=== PATIENT | male | born 1940 | race Caucasian/White ===

== ENCOUNTER 2021-02-11 12:19 | Outpatient (CLI) | payer OTHER | END 2021-02-11 12:20 | disposition home or self-care (01) | LOC: BICCT 12:19 | PROVIDERS: ATTEND Internal Medicine | DX: Z12.2 Encounter for screening for malignant neoplasm of respiratory organs (principal); R91.1 Solitary pulmonary nodule; F17.210 Nicotine dependence, cigarettes, uncomplicated; R91.8 Other nonspecific abnormal finding of lung field; J92.9 Pleural plaque without asbestos | CPT/HCPCS: 71271 ==

== ENCOUNTER 2021-08-09 12:20 | Inpatient (IN) | payer MEDICARE, OTHER ==
[~2021-08-09 12:20] MED LIST: Iopamidol-370 76% 500 ML 1 ML ONE
[2021-08-09] MEDS ORDERED: Acetaminophen 500 MG TAB ONE (12:43)
[2021-08-09] MEDS ORDERED: Vancomycin 1 GM/200 ML BAG ONE (13:11)
[2021-08-09] MEDS ORDERED: Piperacillin/Tazobactam 3.375 GM VIAL ONE (13:11)
[2021-08-09 13:14] LABS: #Eosinphils 0.1 thou/uL (0.0-0.7); #Lymphocytes 0.7 thou/uL (1.20-3.40); #Monocytes 0.6 thou/uL (0.11-0.59); #Neutrophils 9.3 thou/uL (1.40-6.50); %Eosinophils 0.7 % (0.0-10.0); %Lymphocytes 6.4 % (21.0-51.0); %Monocytes 5.9 % (0.0-10.0); %Neutrophils 86.9 % (42.0-75.0); Hemoglobin 11.4 g/dL (14.0-18.0); Mean Corpuscular HGB CONC 33.9 g/dL (32.0-36.0); Mean Corpuscular Hemoglobin 32.2 pg (27.0-31.0); Mean Corpuscular Volume 95.2 fL (78.0-98.0); Mean Platelet Volume 9.3 fL (7.4-10.4); Platelet Count 80 thou/uL (130-400); RBC Distribution Width 12.4 % (11.5-14.5); Red Blood Cell (RBC) Count 3.53 mill/uL (4.70-6.10); White Blood Cell (WBC) Count 10.7 thou/uL (4.8-10.8)
[2021-08-09 13:26] LABS: MDiff Complete? YES; Ovalocytes SLIGHT = 2-5 cells (100X) (0-1/hpf); Platelet Morphology Comment Appears Decreased; Polychromasia SLIGHT = 2-3 cells (100X) (0-2/hpf)
[2021-08-09 13:45] LABS: ALT (SGPT) 37 U/L (8-55); AST (SGOT) 37 U/L (5-34); Albumin 2.4 g/dL (3.4-4.8); Alkaline Phosphatase 98 U/L (40-110); Anion Gap 14 mmol/L (10-20); BUN (Urea Nitrogen) 42 mg/dL (8.4-25.7); Calc. Creatinine Clearance 0 mL/min (70-130); Calcium 8.2 mg/dL (7.8-10.44); Carbon Dioxide 21 mmol/L (23-31); Chloride 110 mmol/L (98-107); Globulin 2.4 g/dL (2.4-3.5); Glucose 100 mg/dL (83-110); Potassium 4.5 mmol/L (3.5-5.1); Protein, Total 4.8 g/dL (5.8-8.1); Sodium 140 mmol/L (136-145)
[2021-08-09 13:56] LABS: CKMB 0.9 ng/mL (0-6.6)
[2021-08-09 14:31] LABS: Bacteria/HPF None Seen HPF (None Seen); Bilirubin Negative (Negative); Blood, Urine Trace (Negative); Clarity Clear (Clear); Glucose, Urine (Dipstick) Normal (Negative); Ketone, Urine Negative (Negative); Leukocyte Negative Leu/uL (Negative); Nitrite Negative (Negative); Protein, Urine (Dipstick) 10 mg/dL (Neg-Trace); Squamous Epithelial 0-3 HPF (0-3); Urobilinogen Normal mg/dL (Less than 2); WBC/HPF 0-3 HPF (0-3)
[2021-08-09] MEDS ORDERED: Enoxaparin Sodium 80 MG/0.8 ML SYRINGE ONE (15:20)
[2021-08-09 16:10] LABS: Lactic Acid 1.3 mmol/L (0.5-2.2)
[2021-08-09] MEDS ORDERED: Acetaminophen 325 MG TAB PO PRN (16:41)
[2021-08-09] MEDS ORDERED: Bisacodyl 5 MG TAB PO PRN (16:41)
[2021-08-09] MEDS ORDERED: Senokot S 8.6-50 MG TAB PO PRN (16:41)
[2021-08-09] MEDS ORDERED: Ondansetron PF 4 MG/2 ML Vial IVP PRN (16:41)
[2021-08-09] MEDS ORDERED: Acetaminophen 650 MG Suppository PR PRN (16:41)
[2021-08-09] MEDS ORDERED: Ondansetron ODT 4 MG TAB PO PRN (16:41)
[2021-08-09] MEDS ORDERED: Vancomycin 1 GM in Premix Bag 1 BAG IVPB SCH (16:45)
[2021-08-09] MEDS ORDERED: Morphine 2 MG/ML VIAL SLOW IVP PRN (17:17)
[2021-08-09 17:22] VITALS: BMI 25.7
[2021-08-09] MEDS ORDERED: Vancomycin HCl 750 MG in Sodium Chloride 0.9% 250 ML 250 ML IVPB SCH (17:45)
[2021-08-09] MEDS: Sodium Chloride 0.9% 1,000 ML IV SCH (19:52)
[2021-08-09] MEDS: Cefepime 2 GM in Sodium Chloride 0.9% 100 ML IVPB SCH (22:12)
[2021-08-09] MEDS: Enoxaparin Sodium 80 MG/0.8 ML SYRINGE SC SCH (22:46)
[2021-08-10 00:56] LABS: SARS-CoV-2 PCR by NAA Not Detected (NotDetected)
[2021-08-10] MEDS: Morphine 4 MG/ML VIAL SLOW IVP PRN (05:48)
[2021-08-10 05:55] LABS: #Eosinphils 0.1 thou/uL (0.0-0.7); #Lymphocytes 1.2 thou/uL (1.20-3.40); #Monocytes 0.6 thou/uL (0.11-0.59); #Neutrophils 9.9 thou/uL (1.40-6.50); %Basophils 0.1 % (0.0-1.0); %Eosinophils 0.7 % (0.0-10.0); %Lymphocytes 10.4 % (21.0-51.0); %Monocytes 5.1 % (0.0-10.0); %Neutrophils 83.6 % (42.0-75.0); Hemoglobin 13.1 g/dL (14.0-18.0); Mean Corpuscular HGB CONC 33.4 g/dL (32.0-36.0); Mean Corpuscular Hemoglobin 31.7 pg (27.0-31.0); Mean Corpuscular Volume 94.7 fL (78.0-98.0); Mean Platelet Volume 7.5 fL (7.4-10.4); Platelet Count 98 thou/uL (130-400); RBC Distribution Width 12.6 % (11.5-14.5); Red Blood Cell (RBC) Count 4.14 mill/uL (4.70-6.10); White Blood Cell (WBC) Count 11.8 thou/uL (4.8-10.8)
[2021-08-10 06:26] LABS: ALT (SGPT) 42 U/L (8-55); AST (SGOT) 36 U/L (5-34); Albumin 2.9 g/dL (3.4-4.8); Alkaline Phosphatase 117 U/L (40-110); Anion Gap 17 mmol/L (10-20); BUN (Urea Nitrogen) 34 mg/dL (8.4-25.7); Bilirubin, Total 1.8 mg/dL (0.2-1.2); Calc. Creatinine Clearance 55 mL/min (70-130); Carbon Dioxide 16 mmol/L (23-31); Chloride 110 mmol/L (98-107); Globulin 2.5 g/dL (2.4-3.5); Glucose 95 mg/dL (83-110); Potassium 3.7 mmol/L (3.5-5.1); Protein, Total 5.4 g/dL (5.8-8.1); Sodium 139 mmol/L (136-145)
[2021-08-10] MEDS: Cefepime 2 GM in Sodium Chloride 0.9% 100 ML IVPB SCH ×2 (08:34→21:37)
[2021-08-10] MEDS: Enoxaparin Sodium 80 MG/0.8 ML SYRINGE SC SCH ×2 (08:34→21:35)
[2021-08-10] MEDS: Sodium Chloride 0.9% 1,000 ML IV SCH (10:16)
[2021-08-10] MEDS ORDERED: oxyCODONE 5 MG TAB PO PRN (12:49)
[2021-08-10] MEDS ORDERED: oxyCODONE 5 MG TAB PO SCH (13:00)
[2021-08-10] MEDS: VANCOMYCIN 1.75 GM/500 ML BAG 1.75 GM in Premix Bag 1 BAG IVPB SCH (21:34)
[2021-08-10] MEDS: Gabapentin 100 MG CAP PO SCH (21:38)
[2021-08-10] MEDS: Docusate 100 MG CAP PO SCH (21:38)
[2021-08-10] MEDS: Atorvastatin Calcium 20 MG TAB PO SCH (21:39)
[2021-08-10] MEDS: oxyCODONE ER 20 MG TAB PO SCH (21:39)
[2021-08-11] MEDS: Sodium Chloride 0.9% 1,000 ML IV SCH ×2 (01:48→11:22)
[2021-08-11 05:52] LABS: #Eosinphils 0.1 thou/uL (0.0-0.7); #Lymphocytes 0.5 thou/uL (1.20-3.40); #Monocytes 0.3 thou/uL (0.11-0.59); #Neutrophils 4.6 thou/uL (1.40-6.50); %Eosinophils 1.5 % (0.0-10.0); %Lymphocytes 9.3 % (21.0-51.0); %Monocytes 6.1 % (0.0-10.0); Hemoglobin 8.4 g/dL (14.0-18.0); Mean Corpuscular HGB CONC 33.2 g/dL (32.0-36.0); Mean Corpuscular Hemoglobin 33.8 pg (27.0-31.0); Mean Platelet Volume 8.5 fL (7.4-10.4); Platelet Count 58 thou/uL (130-400); RBC Distribution Width 12.8 % (11.5-14.5); Red Blood Cell (RBC) Count 2.48 mill/uL (4.70-6.10); White Blood Cell (WBC) Count 5.5 thou/uL (4.8-10.8)
[2021-08-11 06:28] LABS: ALT (SGPT) 34 U/L (8-55); AST (SGOT) 27 U/L (5-34); Albumin 2.3 g/dL (3.4-4.8); Alkaline Phosphatase 94 U/L (40-110); Anion Gap 12 mmol/L (10-20); BUN (Urea Nitrogen) 27 mg/dL (8.4-25.7); Calc. Creatinine Clearance 70 mL/min (70-130); Calcium 8.1 mg/dL (7.8-10.44); Carbon Dioxide 21 mmol/L (23-31); Chloride 112 mmol/L (98-107); Globulin 2.1 g/dL (2.4-3.5); Glucose 80 mg/dL (83-110); Potassium 3.5 mmol/L (3.5-5.1); Protein, Total 4.4 g/dL (5.8-8.1); Sodium 141 mmol/L (136-145)
[2021-08-11] MEDS: Enoxaparin Sodium 80 MG/0.8 ML SYRINGE SC SCH (09:35)
[2021-08-11] MEDS: Gabapentin 100 MG CAP PO SCH ×2 (09:36→21:03)
[2021-08-11] MEDS: Cefepime 2 GM in Sodium Chloride 0.9% 100 ML IVPB SCH ×2 (09:36→21:02)
[2021-08-11] MEDS: Docusate 100 MG CAP PO SCH ×2 (09:36→21:04)
[2021-08-11] MEDS: Aspirin 81 mg Enteric Coated Tablet PO SCH (09:36)
[2021-08-11] MEDS: oxyCODONE ER 20 MG TAB PO SCH ×2 (09:37→21:02)
[2021-08-11] MEDS: Escitalopram Oxalate 10 mg Tablet PO SCH (09:37)
[2021-08-11] MEDS: Losartan 25 MG TAB PO SCH (09:38)
[2021-08-11] MEDS ORDERED: Apixaban 5 MG TAB PO SCH (10:00)
[2021-08-11 20:20] LABS: Vancomycin, Trough 14.5 ug/mL
[2021-08-11] MEDS: VANCOMYCIN 1.75 GM/500 ML BAG 1.75 GM in Premix Bag 1 BAG IVPB SCH (21:01)
[2021-08-11] MEDS: Atorvastatin Calcium 20 MG TAB PO SCH (21:04)
[2021-08-11] MEDS: Apixaban 5 MG TAB PO SCH (21:04)
[2021-08-12] MEDS: Sodium Chloride 0.9% 1,000 ML IV SCH ×2 (03:46→18:48)
[2021-08-12 05:28] LABS: #Eosinphils 0.1 thou/uL (0.0-0.7); #Lymphocytes 0.6 thou/uL (1.20-3.40); #Monocytes 0.4 thou/uL (0.11-0.59); #Neutrophils 4.3 thou/uL (1.40-6.50); %Basophils 0.8 % (0.0-1.0); %Eosinophils 2.4 % (0.0-10.0); %Monocytes 6.7 % (0.0-10.0); %Neutrophils 79.1 % (42.0-75.0); Mean Corpuscular HGB CONC 32.9 g/dL (32.0-36.0); Mean Corpuscular Hemoglobin 31.8 pg (27.0-31.0); Mean Corpuscular Volume 96.5 fL (78.0-98.0); Mean Platelet Volume 7.8 fL (7.4-10.4); Platelet Count 99 thou/uL (130-400); RBC Distribution Width 12.7 % (11.5-14.5); Red Blood Cell (RBC) Count 3.47 mill/uL (4.70-6.10); White Blood Cell (WBC) Count 5.4 thou/uL (4.8-10.8)
[2021-08-12 05:54] LABS: ALT (SGPT) 34 U/L (8-55); AST (SGOT) 28 U/L (5-34); Albumin 2.2 g/dL (3.4-4.8); Alkaline Phosphatase 99 U/L (40-110); Anion Gap 11 mmol/L (10-20); BUN (Urea Nitrogen) 26 mg/dL (8.4-25.7); Bilirubin, Total 0.8 mg/dL (0.2-1.2); Calc. Creatinine Clearance 62 mL/min (70-130); Calcium 8.1 mg/dL (7.8-10.44); Carbon Dioxide 22 mmol/L (23-31); Chloride 112 mmol/L (98-107); Globulin 2.1 g/dL (2.4-3.5); Glucose 82 mg/dL (83-110); Protein, Total 4.3 g/dL (5.8-8.1); Sodium 141 mmol/L (136-145)
[2021-08-12] MEDS: Cefepime 2 GM in Sodium Chloride 0.9% 100 ML IVPB SCH (08:09)
[2021-08-12] MEDS: Gabapentin 100 MG CAP PO SCH ×2 (08:12→21:09)
[2021-08-12] MEDS: Losartan 25 MG TAB PO SCH (08:17)
[2021-08-12] MEDS: Aspirin 81 mg Enteric Coated Tablet PO SCH (08:17)
[2021-08-12] MEDS: Escitalopram Oxalate 10 mg Tablet PO SCH (08:18)
[2021-08-12] MEDS: Docusate 100 MG CAP PO SCH ×2 (08:18→21:10)
[2021-08-12] MEDS: oxyCODONE ER 20 MG TAB PO SCH ×2 (08:20→21:08)
[2021-08-12] MEDS: Apixaban 5 MG TAB PO SCH ×2 (08:22→21:10)
[2021-08-12] MEDS: Morphine 4 MG/ML VIAL SLOW IVP PRN (12:59)
[2021-08-12] MEDS: Atorvastatin Calcium 20 MG TAB PO SCH (21:08)
[2021-08-13] MEDS: Sodium Chloride 0.9% 1,000 ML IV SCH (03:56)
[2021-08-13 05:39] LABS: #Eosinphils 0.1 thou/uL (0.0-0.7); #Lymphocytes 0.6 thou/uL (1.20-3.40); #Monocytes 0.4 thou/uL (0.11-0.59); %Basophils 0.2 % (0.0-1.0); %Eosinophils 2.8 % (0.0-10.0); %Lymphocytes 11.7 % (21.0-51.0); %Monocytes 7.7 % (0.0-10.0); %Neutrophils 77.5 % (42.0-75.0); Hemoglobin 12.2 g/dL (14.0-18.0); Mean Corpuscular HGB CONC 33.1 g/dL (32.0-36.0); Mean Corpuscular Hemoglobin 31.2 pg (27.0-31.0); Mean Corpuscular Volume 94.4 fL (78.0-98.0); Mean Platelet Volume 7.7 fL (7.4-10.4); Platelet Count 114 thou/uL (130-400); RBC Distribution Width 12.7 % (11.5-14.5); Red Blood Cell (RBC) Count 3.91 mill/uL (4.70-6.10); White Blood Cell (WBC) Count 5.2 thou/uL (4.8-10.8)
[2021-08-13 05:54] LABS: Albumin 2.3 g/dL (3.4-4.8)
[2021-08-13 05:55] LABS: ALT (SGPT) 46 U/L (8-55); AST (SGOT) 43 U/L (5-34); Alkaline Phosphatase 125 U/L (40-110); Anion Gap 12 mmol/L (10-20); BUN (Urea Nitrogen) 21 mg/dL (8.4-25.7); Calc. Creatinine Clearance 69 mL/min (70-130); Calcium 8.2 mg/dL (7.8-10.44); Carbon Dioxide 21 mmol/L (23-31); Chloride 111 mmol/L (98-107); Globulin 2.3 g/dL (2.4-3.5); Glucose 84 mg/dL (83-110); Potassium 3.6 mmol/L (3.5-5.1); Protein, Total 4.6 g/dL (5.8-8.1); Sodium 140 mmol/L (136-145)
[2021-08-13 06:23] LABS: Bilirubin, Total 0.8 mg/dL (0.2-1.2)
[2021-08-13] MEDS: Gabapentin 100 MG CAP PO SCH (09:46)
[2021-08-13] MEDS: oxyCODONE ER 20 MG TAB PO SCH (09:46)
[2021-08-13] MEDS: Apixaban 5 MG TAB PO SCH (09:46)
[2021-08-13] MEDS: Aspirin 81 mg Enteric Coated Tablet PO SCH (09:46)
[2021-08-13] MEDS: Docusate 100 MG CAP PO SCH (09:46)
[2021-08-13] MEDS: Escitalopram Oxalate 10 mg Tablet PO SCH (09:47)
[2021-08-13] MEDS: Losartan 25 MG TAB PO SCH (09:49)
[2021-08-13 11:37] VITALS: BP 170/67; TEMP 98.3
== END 2021-08-13 14:31 | disposition hospice, home (50) | DRG 176 ==
LOC: ERS 12:20 → MSONC 15:42
PROVIDERS: ADMIT Family Medicine; ATTEND Internal Medicine
DX: I26.99 Other pulmonary embolism without acute cor pulmonale (principal); C34.90 Malignant neoplasm of unspecified part of unspecified bronchus or lung; J90 Pleural effusion, not elsewhere classified; N17.9 Acute kidney failure, unspecified; C79.51 Secondary malignant neoplasm of bone; Z20.822 Contact with and (suspected) exposure to COVID-19; Z66 Do not resuscitate; Z51.5 Encounter for palliative care; N40.0 Benign prostatic hyperplasia without lower urinary tract symptoms; E78.00 Pure hypercholesterolemia, unspecified; E78.5 Hyperlipidemia, unspecified; F41.9 Anxiety disorder, unspecified; F32.A Depression, unspecified; N18.2 Chronic kidney disease, stage 2 (mild); I12.9 Hypertensive chronic kidney disease with stage 1 through stage 4 chronic kidney disease, or unspecified chronic kidney disease; Z79.899 Other long term (current) drug therapy; Z79.82 Long term (current) use of aspirin; Z87.891 Personal history of nicotine dependence; Z90.09 Acquired absence of other part of head and neck
CPT/HCPCS: 36415; 71045; 71275; 80053; 80202; 81003; 81015; 82553; 83605; 83880; 84145; 84484; 85025; 87040; 87077; 87086; 87149; 87186; 93005; 93306; 96361; 96365; 96372; J0692; J1650; J2270; J2405; J2543; J3370; J3490; J7050; Q9967; U0003; U0005